=== PATIENT | male | born 1990 | race African-American/Black ===

== ENCOUNTER 2018-01-06 16:05 | Emergency (ER) | payer SELFPAY ==
[~2018-01-06] VITALS: Ht 182.9 cm; Wt 93.0 kg
[2018-01-06 16:34] VITALS: BP 133/85
== END 2018-01-06 20:34 | disposition home or self-care (01) ==
LOC: ER 16:05
DX: S06.0X0A Concussion without loss of consciousness, initial encounter (principal); I10 Essential (primary) hypertension; W22.8XXA Striking against or struck by other objects, initial encounter; Y93.89 Activity, other specified; Y92.89 Other specified places as the place of occurrence of the external cause
CPT/HCPCS: 99284